=== PATIENT | female | born 1965 | race Caucasian/White ===

== ENCOUNTER → 2018-01-11 09:53 | Outpatient (CLI) | payer OTHER, SELFPAY ==
--- NOTE | 2018-01-11 15:26 | PFTCOMP ---
COMPLETE PULMONARY FUNCTION TEST INTERPRETATION Brief HPI: Patient is a 52 year old female, currently under the care of myself, who presents to [facility] for complete pulmonary function tests secondary to diagnosis of cough. Respiratory therapist reports good effort and reproducible results. Interpretation: Forced expiration spirometry shows a severe large airways obstructive ventilatory defect with an FEV1 of 53% predicted. There is no significant bronchodilator response by strict ATS criteria. Spirograms are of good quality and plateau slowly, indicating slowly emptying areas of the lungs. The respiratory flow volume loop shows decreased expiratory flow rates at all lung volumes consistent with airway obstruction. Lung volumes by body plethysmography show a normal total lung capacity at 5.71 L, 96% predicted. FRC and RV are elevated out of proportion. Lung volume measurements are consistent with air-trapping. Diffusion capacity by carbon monoxide is decreased at 50% predicted. The airway resistance is elevated. Compared to previous pulmonary function tests from 05/03/2017, there has been a significant improvement in FVC, FEV1 and TLC. Impression: Irreversible severe large airways obstructive ventilatory defect with a symmetric reduction diffusing capacity. There is significant improvement compared to previous study.
--- NOTE | 2018-01-11 15:29 | PFTCOMP_ITS ---
COMPLETE PULMONARY FUNCTION TEST INTERPRETATION Brief HPI: Patient is a 52 year old female, currently under the care of myself, who presents to [facility] for complete pulmonary function tests secondary to diagnosis of cough. Respiratory therapist reports good effort and reproducible results. Interpretation: Forced expiration spirometry shows a severe large airways obstructive ventilatory defect with an FEV1 of 53% predicted. There is no significant bronchodilator response by strict ATS criteria. Spirograms are of good quality and plateau slowly, indicating slowly emptying areas of the lungs. The respiratory flow volume loop shows decreased expiratory flow rates at all lung volumes consistent with airway obstruction. Lung volumes by body plethysmography show a normal total lung capacity at 5.71 L , 96% predicted. FRC and RV are elevated out of proportion. Lung volume measurements are consistent with air-trapping. Diffusion capacity by carbon monoxide is decreased at 50% predicted. The airway resistance is elevated. Compared to previous pulmonary function tests from 05/03/2017, there has been a significant improvement in FVC, FEV1 and TLC. Impression: Irreversible severe large airways obstructive ventilatory defect with a symmetric reduction diffusing capacity. There is significant improvement compared to previous study.
== END ==
LOC: PSN 09:55
PROVIDERS: Family Provider Family Medicine; PCP Family Medicine; Visit Provider Internal Medicine Critical Care Medicine
DX: R05 Cough (principal)
CPT/HCPCS: 94060; 94726; 94729

== ENCOUNTER → 2018-11-15 12:44 | Outpatient (CLI) | payer BC, SELFPAY ==
[2018-08-18 11:09] VITALS: BMI 41.6
--- NOTE | 2018-11-15 16:53 | PFTCOMP_ITS ---
COMPLETE PULMONARY FUNCTION TEST INTERPRETATION Brief HPI: Patient is a 53 year old [female male], currently under the care of [myself Dr. Arredondo], who presents to [facility] for complete pulmonary function tests secondary to diagnosis of [dyspnea COPD]. Respiratory therapist reports good effort and reproducible results. Interpretation: Forced expiration spirometry shows a [moderately-severe] large airways obstructive ventilatory defect with an FEV1 of 63% predicted. There is a significant bronchodilator response in FEV1 by strict ATS criteria. Spirograms are of good quality and plateau [slowly, indicating slowly emptying areas of the lungs]. The respiratory flow volume loop shows [decreased expiratory flow rates at all lung volumes consistent with airway obstruction]. Lung volumes by body plethysmography show [a normal an elevated, a decreased] total lung capacity at 5.14 L, 87% predicted. [All other lung volumes are within normal limits.] Diffusion capacity by carbon monoxide is decreased at 65% predicted. The airway resistance is elevated. [Compared to previous pulmonary function tests from] 01/11/2018, there is been a significant improvement in FVC, FEV1 and DLCO by 23%, 17% and 31% respectively. Impression: Partially reversible moderately severe large airways obstructive ventilatory defect with a symmetric reduction diffusion capacity, in a pattern consistent with COPD/asthma overlap syndrome.
== END ==
LOC: PSN 12:45
PROVIDERS: Family Provider Family Medicine; PCP Family Medicine; Referring Provider Internal Medicine Critical Care Medicine; Visit Provider Internal Medicine Critical Care Medicine
DX: J30.9 Allergic rhinitis, unspecified (principal); R06.02 Shortness of breath
CPT/HCPCS: 94060; 94726; 94729

== ENCOUNTER → 2018-11-21 | Outpatient (CLI) | payer BC, SELFPAY ==
[2018-11-21 12:57] VITALS: BMI 41.3
[2018-11-21 15:32] LABS: T4 Total, Thyroxin 11.7 ug/dL (4.8-13.9); Thyroid Stim Hormone (TSH) 0.37 uIU/mL (0.358-3.74)
== END | disposition home or self-care (01) ==
LOC: LAB 13:34
PROVIDERS: Family Provider Family Medicine; PCP Family Medicine; Referring Provider Internal Medicine Cardiovascular Disease; Visit Provider Internal Medicine Cardiovascular Disease
DX: L65.9 Nonscarring hair loss, unspecified (principal); R00.0 Tachycardia, unspecified; R00.2 Palpitations
CPT/HCPCS: 36415; 84436; 84443

== ENCOUNTER → 2018-11-23 12:52 | Outpatient (REF) | payer BC, SELFPAY ==
[2018-11-21 12:57] VITALS: BMI 41.3
[2018-11-22 13:07] VITALS: BMI 41.3
== END ==
LOC: CVS 12:52
PROVIDERS: Family Provider Family Medicine; PCP Family Medicine; Referring Provider Internal Medicine Cardiovascular Disease; Visit Provider Internal Medicine Cardiovascular Disease
DX: R00.2 Palpitations (principal); R00.0 Tachycardia, unspecified; I42.9 Cardiomyopathy, unspecified
CPT/HCPCS: 93270

== ENCOUNTER → 2018-12-20 | Outpatient (CLI) | payer OTHER, SELFPAY ==
[2018-11-21 12:57] VITALS: BMI 41.3
[2018-11-22 13:07] VITALS: BMI 41.3
--- NOTE | 2018-12-20 12:48 | ECHOCS_ITS ---
Reason For Study: ARRHYTHMIA Procedure This was a 2D Doppler, Color Flow transthoracic echocardiogram. Exam performed in department. Left Ventricle Mildly dilated left ventricle. The estimated ejection fraction is 45-50 %. Stage 1 diastolic dysfunction. There is mild global hypokinesis of the left ventricle. Right Ventricle Normal size and thickness. Normal systolic function. Atria Normal left atrium. Normal right atrium. Normal atrial septum. Mitral Valve The mitral valve is structurally normal. No prolapse or stenosis seen. Tricuspid Valve Normal tricuspid valve. Trivial tricuspid valve insufficiency. Right ventricular systolic pressure estimated to be 35 mmHg. Aortic Valve Trisinus/trileaflet aortic valve. Normal aortic valve. Pulmonic Valve Normal pulmonic valve. Trivial pulmonic valve insufficiency. Great Vessels Normal aortic root. Normal arch. Normal inferior vena cava. Inferior vena cava collapse with sniff. Pericardium/Pleural No pericardial effusion. Medication 22 gauge I.V. with prn adaptor inserted into right arm. Diluted definity 3ml given slow IV push to enhance endocardial definition. MMode/2D Measurements & Calculations LVIDd: 5.4 cm IVSd: 0.90 cm Ao root diam: 3.4 cm LVIDs: 4.1 cm LVPWd: 0.96 cm RVDd: 3.6 cm FS: 24.1 % LAV(MOD-bp): 64.3 ml EDV(MOD-sp4): 153.9 ml EDV(MOD-sp2): 157.2 ml LAV(MOD-bp) Indexed: 27.1 ml/m2 ESV(MOD-sp4): 78.6 ml EF(MOD-sp2): 54.3 % LAV(MOD-sp2): 64.3 ml EF(MOD-sp4): 49.0 % LAV(MOD-sp4): 59.7 ml SV(MOD-sp4): 75.3 ml SV(MOD-sp2): 85.3 ml LA A4 area: 20.3 cm2 LA dimension(2D): 3.5 cm RA A4 area: 12.6 cm2 Time Measurements MV dec time: 0.35 sec Doppler Measurements & Calculations MV E max lc: 48.3 cm/sec Lat Peak E' Lc: 8.6 cm/sec Med Peak E' Lc: 7.7 cm/sec MV A max lc: 73.5 cm/sec E/E' lat: 5.6 E/E' med: 6.3 MV E/A: 0.66 Ao V2 max: 158.9 cm/sec LV V1 max: 125.5 cm/sec PA V2 max: 106.7 cm/sec Ao max P.1 mmHg LV V1 max P.3 mmHg TR max lc: 268.6 cm/sec TR max P.9 mmHg Interpretation Summary Mildly dilated left ventricle. The estimated ejection fraction is 45-50 %. Stage 1 diastolic dysfunction. There is mild global hypokinesis of the left ventricle. Trivial tricuspid valve insufficiency. Right ventricular systolic pressure estimated to be 35 mmHg. Compared to echo report dated 04/26/2017, no appreiciable changes noted. The study was technically difficult. Contrast injection was performed. Ordering Physician: Samy Munoz Referring Physician: ANNEMARIE HAMILTON Performed By: Rosa Matthews, ROSETTE, RVT
== END | disposition home or self-care (01) ==
LOC: CVS 12:47
PROVIDERS: Family Provider Family Medicine; PCP Family Medicine; Referring Provider Internal Medicine Cardiovascular Disease; Visit Provider Internal Medicine Cardiovascular Disease
DX: G47.19 Other hypersomnia (principal); R06.83 Snoring; I42.9 Cardiomyopathy, unspecified; R00.2 Palpitations
CPT/HCPCS: 93306; 95810; Q9957; A4216; C8929

== ENCOUNTER → 2018-12-20 | Outpatient (CLI) | payer OTHER, SELFPAY ==
[2018-11-22 13:07] VITALS: BMI 41.3
[2018-12-20 14:58] LABS: Absolute Lymphocyte Count 1.75 X10^3/ul (0.83-4.51); Absolute Neutrophil Count 5.4 X10^3/uL (2.0-7.7); Basophil# 0.03 X10^3/uL; Basophil% 0.4 % (0-1); Eosinophils% 2.6 % (0-5); Hematocrit 43.2 % (37-47); Hemoglobin 13.8 g/dl (12.0-15.0); Lymphocyte # 1.75 X10^3/ul (4.0); Lymphocyte % 22.4 % (19-41); Mean Corp Hgb Conc 31.9 g/gl (32-36); Mean Corpuscular Hgb 28.2 pg (27.0-32.0); Mean Corpuscular Volume 88.3 fL (81-99); Mean Platelet Vol. 9.9 fl (6.2-12.0); Monocyte% 5.1 % (0-10); Neutrophil # 5.43 X10^3/uL (2.7-7.7); Neutrophil % 69.4 % (47-70); POSITIVE COUNT NO; POSITIVE DIFFERENTIAL NO; POSITIVE MORPHOLOGY NO; Platelet Count 362 K/mm3 (150-450); RBC Distribution Width SD 44.6 fl (35.1-43.9); Red Blood Count 4.89 M/mm3 (4.2-5.4); White Blood Count 7.8 K/mm3 (4.4-11.0)
[2018-12-20 15:27] LABS: Anion Gap 10 (5-15); BUN 12 mg/dL (7-18); BUN/Creat Ratio 16.4 RATIO (10-20); Calcium,Total 9.1 mg/dL (8.5-10.1); Chloride 105 mmol/L (98-107); Creatinine, Serum 0.73 mg/dL (0.55-1.02); EST Glomerular Filtration Rate 87 mL/min (>60); Est Glom Filt Rate - Afr Amer 106 mL/min (>60); Glucose 85 mg/dL (74-106); Magnesium 2.1 mg/dL (1.6-2.6); Potassium 3.9 mmol/L (3.5-5.1); Sodium Level 141 mmol/L (136-145)
== END | disposition home or self-care (01) ==
LOC: LAB 13:58
PROVIDERS: Family Provider Family Medicine; PCP Family Medicine; Referring Provider Physician Assistant Medical; Visit Provider Physician Assistant Medical
DX: I47.2 Ventricular tachycardia (principal)
CPT/HCPCS: 36415; 80048; 83735; 85025

== ENCOUNTER → 2019-01-12 | Outpatient (CLI) | payer BC, SELFPAY ==
[2018-11-22 13:07] VITALS: BMI 41.3
[2019-01-10 10:48] VITALS: BMI 41.3
== END | disposition home or self-care (01) ==
LOC: SL 20:19
PROVIDERS: Family Provider Family Medicine; PCP Family Medicine; Visit Provider Nurse Practitioner Acute Care
DX: G47.33 Obstructive sleep apnea (adult) (pediatric) (principal)
CPT/HCPCS: 95811

== ENCOUNTER → 2019-01-31 | Outpatient (CLI) | payer BC, SELFPAY ==
[2019-01-10 10:48] VITALS: BMI 41.3
[2019-01-27 14:52] VITALS: BMI 40.1
== END | disposition home or self-care (01) ==
LOC: SL 13:38
PROVIDERS: Family Provider Family Medicine; PCP Family Medicine; Referring Provider Nurse Practitioner Acute Care; Visit Provider Nurse Practitioner Acute Care
DX: G47.33 Obstructive sleep apnea (adult) (pediatric) (principal)

== ENCOUNTER 2019-06-29 00:18 | Emergency (ER) | payer SELFPAY ==
[2019-02-14 11:14] VITALS: BMI 39.5
[2019-06-29 00:18] VITALS: BP 189/107; PULSE 85; RESP 30; TEMP 36.9; O2SAT 95; BMI 34.4
--- NOTE | 2019-06-29 00:22 | RAD_ITS ---
STUDY: X-RAY CHEST REASON FOR EXAM: Female, 54 years old. sob -- hx of asthma TECHNIQUE: Single AP portable view of the chest. COMPARISON: None. FINDINGS: The lungs are clear and expanded. There is no demonstrated pleural abnormality. Normal size heart. Normal mediastinum and abundio. Normal visualized pulmonary arteries. Normal visualized aortic arch and descending thoracic aorta. Normal visualized thoracic spine. Normal visualized ribs, clavicles, and shoulders. There is no demonstrated abnormality of the visualized soft tissue structures of the upper abdomen. RAD/Chest 1 View (Portable) IMPRESSION: Normal x-ray examination of the chest. Electronically Signed: Polo Lees, at 1:00 EST Tel , Service support ,
--- NOTE | 2019-06-29 00:22 | EKG12_ITS ---
Test Reason : CP Blood Pressure : / mmHG Vent. Rate : 083 BPM Atrial Rate : 083 BPM P-R Int : 152 ms QRS Dur : 080 ms QT Int : 366 ms P-R-T Axes : 048 071 023 degrees QTc Int : 430 ms Normal sinus rhythm Normal ECG Confirmed by WANG GLEASON, SERGIO ([id number]), scientific editor CAROLINA GOMEZ ([id number] on 06/30/2019 10:33:02 AM Referred By: GLEN Confirmed By:RASHEED PIÑA MD
--- NOTE | 2019-06-29 00:24 | ED.VIS.GEN ---
History of Present Illness Chief Complaint: Shortness of Breath Informant: Patient Onset: Days Context: Gradual Onset Timing: Continuous Current Severity: Moderate Maximum Severity: Moderate Narrative: The patient is a 54-year-old female with history of COPD who is not on home oxygen that presents to the emergency department with increasing dyspnea and wheezing. The patient states there was recent change in her insurance. She was without her COPD medications for about 5 days. She states that she recently got them refilled, but is still been having increasing shortness of breath and wheezing. She said cough with scant sputum. She denies any fevers or chills. She denies any chest pain. She states tonight, she just felt like she could not catch her breath. Prior similar symptoms: Yes Recent Illness/Hospitalization: No Past Medical History - Allergies and Home Meds Allergies/Adverse Reactions: Allergies azithromycin [From Zithromax] Allergy (Verified 06/29/19 00:21) Swelling doxycycline [From Acticlate] Allergy (Verified 06/29/19 00:21) Unknown erythromycin base Allergy (Verified 06/29/19 00:21) Unknown penicillin G [From Bicillin C-R] Allergy (Verified 06/29/19 00:21) Unknown penicillin G procaine [From Bicillin C-R] Allergy (Verified 06/29/19 00:21) Unknown Penicillins Allergy (Verified 06/29/19 00:21) Unknown Primary Care Physician: Kevin Rodriguez MD [Primary Care Provider] - Prior records reviewed: Yes Past Medical History: - - COPD Surgical History: noncontributory Smoking Status: Never smoker Review of Systems General: Denies: Chills, Fever, Sweats Eyes: Denies: Visual changes - bilaterally, Diplopia ENT: Denies: Rhinorrhea, Sore throat Cardiovascular: Denies: Chest pain, Palpitations Respiratory: Reports: Dyspnea, Cough, Sputum. Denies: Dyspnea on exertion Gastrointestinal: Denies: Abdominal pain, Nausea, Vomiting, Diarrhea, Melena, Hematochezia Genitourinary: Denies: Dysuria, Hematuria, Frequency Musculoskeletal: Denies: Back pain, Extremity Pain Skin: Denies: Rash, Wounds Neurological: Denies: Headache, Weakness, Numbness Physical Exam Vital Signs/Narrative: Vital Signs Temp Pulse Resp BP Pulse Ox 06/29/19 00:18 98.4 F 85 30 H 189/107 H 95 Inital Vital Signs reviewed: Yes General: Well nourished, Well developed, No Acute Distress Head: Normocephalic, Atraumatic Eyes: Perrl, EOMI ENT: Moist mucous membranes, No rhinorrhea Neck: Supple, Nontender Cardiovascular: Regular rate, Regular rhythm, No murmurs Respiratory: No distress, Chest nontender, Wheezing Abdomen: Soft, Nontender, Nondistended, Normal bowel sounds Back: Nontender, Normal Inspection Extremities: Nontender, No edema Skin: Normal color, No rash Neurological: Alert, Oriented x3, Cranial nerves II-XII grossly intact, Normal Strength, Normal Sensation Psychological: Normal affect, Normal Mood Diagnostic/Tx/Re-eval Chest X-Ray - ED: 1 View, Normal, Heart, Lungs, Mediastinum Clinical Impression(s) from Imaging Studies Chest X-Ray 06/29/19 00:22 IMPRESSION: Normal x-ray examination of the chest. Electronically Signed: Polo Lees, at 1:00 EST Tel , Service support , Abnormal Lab Results 06/29/19 06/29/19 00:40 00:40 WBC 10.0 RBC 4.97 Hgb 14.5 Hct 45.5 MCV 91.5 MCH 29.2 MCHC 31.9 L RDW Std Deviation 45.8 H RDW Coeff of Oziel 13.6 Plt Count 386 MPV 9.9 Immature Gran % (Auto) 0.200 Neut % (Auto) 53.8 Lymph % (Auto) 34.9 [place] % (Auto) 5.2 Eos % (Auto) 5.0 Baso % (Auto) 0.9 Absolute Neuts (auto) 5.4 Absolute Lymphs (auto) 3.48 Nucleated RBC % 0 Sodium 140 Potassium 4.3 Chloride 107 Carbon Dioxide 27.0 Anion Gap 6 BUN 19 H Creatinine 1.11 H Estim Creat Clear Calc 59.14 Est GFR (MDRD) Af Amer 65 Est GFR (MDRD) Non-Af 54 L BUN/Creatinine Ratio 17.1 Glucose 99 Calcium 9.3 - Rhythm Strip Rhythm Strip: Sinus Rhythm Rate: 80 Ectopy: None - EKG Initial EKG Interpretation: Sinus Rhythm, No Acute Injury Pattern Prior: Unchanged - Medical Decision Making The patient symptoms do seem most consistent with a COPD exacerbation. She was tachypneic on arrival. EKG was obtained which was sinus rhythm without acute ischemia. Screening labs are unremarkable. X-ray shows no evidence of volume overload, pneumothorax, or focal infiltrative process. With steroids and nebulized breathing treatments, the patient had rather dramatic symptomatic improvement. She is feeling much more comfortable. She has no tachypnea or hypoxia at baseline. At this point, she is requesting discharge and I feel this is reasonable. The patient be treated with a prednisone burst. 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 Impression 1 COPD exacerbation ED Disposition - Plan for ED Patient: Instructions: Copd Flare Prescriptions: Prednisone [Deltasone] 40 mg PO DAILY #10 tab Prescription Printed Referrals: Kevin Rodriguez MD [Primary Care Provider] -
[2019-06-29] MEDS: Ipratropium/Albuterol Sulfate 3 ML AMPUL.NEB INHALATION (00:39)
[2019-06-29 00:40] VITALS: PULSE 83; RESP 16
[2019-06-29 00:47] LABS: Absolute Lymphocyte Count 3.48 X10^3/uL (0.83-4.51); Absolute Neutrophil Count 5.4 X10^3/uL (2.0-7.7); Basophil# 0.09 X10^3/uL; Basophil% 0.9 % (0-1); Hematocrit 45.5 % (37-47); Hemoglobin 14.5 g/dL (12.0-15.0); Lymphocyte # 3.48 X10^3/ul (4.0); Lymphocyte % 34.9 % (19-41); Mean Corp Hgb Conc 31.9 g/dL (32-36); Mean Corpuscular Hgb 29.2 pg (27.0-32.0); Mean Corpuscular Volume 91.5 fL (81-99); Mean Platelet Vol. 9.9 fl (6.2-12.0); Monocyte# 0.52 X10^3/uL; Monocyte% 5.2 % (0-10); NRBC Flagged by Analyzer 0 % (0-5); Neutrophil # 5.37 X10^3/uL (2.7-7.7); Neutrophil % 53.8 % (47-70); Platelet Count 386 K/mm3 (150-450); RBC Distribution Width CV 13.6 % (11.6-14.6); RBC Distribution Width SD 45.8 fl (35.1-43.9); Red Blood Count 4.97 M/mm3 (4.2-5.4)
[2019-06-29] MEDS: Albuterol 2.5 MG/3 ML VIAL.NEB. INHALATION ×3 (00:47→00:53)
[2019-06-29 01:04] LABS: Anion Gap 6 (5-15); BUN 19 mg/dL (7-18); BUN/Creat Ratio 17.1 RATIO (10-20); Calcium,Total 9.3 mg/dL (8.5-10.1); Chloride 107 mmol/L (98-107); Creatinine, Serum 1.11 mg/dL (0.55-1.02); EST Glomerular Filtration Rate 54 mL/min (>60); Est Glom Filt Rate - Afr Amer 65 mL/min (>60); Estimated Creatinine Clearance 59.14 ml/min; Glucose 99 mg/dL (74-106); Potassium 4.3 mmol/L (3.5-5.1); Sodium Level 140 mmol/L (136-145)
[2019-06-29] MEDS: MethylPREDNISolone 125 MG/2 ML Vial IV (01:07)
[2019-06-29] MEDS: 0.9% Normal Saline 1,000 ML 150 ML IV (01:07)
[2019-06-29 01:27] VITALS: BP 162/70; PULSE 80; RESP 20; O2SAT 94
== END 2019-06-29 01:36 | disposition home or self-care (01) ==
LOC: ED 00:50
PROVIDERS: Emergency Provider Emergency Medicine; Family Provider Family Medicine; PCP Family Medicine
DX: J44.1 Chronic obstructive pulmonary disease with (acute) exacerbation (principal)
CPT/HCPCS: 71045; 80048; 85025; 93005; 94640; 96361; 96374; 99285; J7030; A4216

== ENCOUNTER → 2020-01-01 14:56 | Outpatient (CLI) | payer OTHER, SELFPAY ==
[2019-11-24 11:02] VITALS: BMI 39.5
[2020-01-01 16:08] LABS: Absolute Lymphocyte Count 2.08 X10^3/uL (0.83-4.51); Absolute Neutrophil Count 6.2 X10^3/uL (2.0-7.7); Basophil# 0.06 X10^3/uL; Basophil% 0.7 % (0-1); Eosinophil# 0.27 X10^3/uL; Hematocrit 40.4 % (37-47); Hemoglobin 12.6 g/dL (12.0-15.0); Lymphocyte # 2.08 X10^3/ul (4.0); Mean Corp Hgb Conc 31.2 g/dL (32-36); Mean Corpuscular Hgb 28.8 pg (27.0-32.0); Mean Corpuscular Volume 92.2 fL (81-99); Mean Platelet Vol. 9.5 fl (6.2-12.0); Monocyte# 0.44 X10^3/uL; Monocyte% 4.9 % (0-10); NRBC Flagged by Analyzer 0 % (0-5); Neutrophil # 6.18 X10^3/uL (2.7-7.7); Neutrophil % 68.3 % (47-70); Platelet Count 378 K/mm3 (150-450); RBC Distribution Width CV 13.9 % (11.6-14.6); Red Blood Count 4.38 M/mm3 (4.2-5.4)
[2020-01-06 16:07] LABS: Alternaria alternata <0.10 kU/L (Class 0); Bermuda Grass <0.10 kU/L (Class 0); Bluegrass, Kentucky <0.10 kU/L (Class 0); Cat Hair/Dander, Standard <0.10 kU/L (Class 0); D farinae Mite <0.10 kU/L (Class 0); D pteronyssinus <0.10 kU/L (Class 0); Dog Epithelia <0.10 kU/L (Class 0); Elm, American White <0.10 kU/L (Class 0); Oak, White <0.10 kU/L (Class 0); Plantain, English <0.10 kU/L (Class 0); Ragweed, Short/Common <0.10 kU/L (Class 0)
[2020-01-06 17:58] LABS: Mouse Urine <0.10 kU/L (Class 0)
[2020-01-07 09:36] LABS: Aspirgillus flavus Negative (Neg:<1:1); Aspirgillus fumigatus Negative (Neg:<1:1); Aspirgillus niger Negative (Neg:<1:1); Cytoplasmic Ab (C-ANCA) <1:20 titer (Neg:<1:20)
[2020-01-07 23:46] LABS: Immunoglobulin E 32 IU/mL (6-495); Perinuclear Ab (P-ANCA) <1:20 titer (Neg:<1:20)
== END ==
PROVIDERS: PCP Family Medicine; Referring Provider Internal Medicine Critical Care Medicine; Visit Provider Internal Medicine Critical Care Medicine
DX: J30.9 Allergic rhinitis, unspecified (principal)
CPT/HCPCS: 36415; 82785; 85025; 86003; 86256; 86606

== ENCOUNTER → 2020-02-09 10:46 | Outpatient (CLI) | payer OTHER, SELFPAY ==
[2019-11-24 11:02] VITALS: BMI 39.5
[2020-02-09 11:21] LABS: Absolute Lymphocyte Count 2.08 X10^3/uL (0.83-4.51); Absolute Neutrophil Count 5.6 X10^3/uL (2.0-7.7); Basophil# 0.07 X10^3/uL; Basophil% 0.8 % (0-1); Eosinophil# 0.25 X10^3/uL; Eosinophils% 2.9 % (0-5); Hematocrit 42.4 % (37-47); Hemoglobin 13.2 g/dL (12.0-15.0); Lymphocyte # 2.08 X10^3/ul (4.0); Lymphocyte % 24.5 % (19-41); Mean Corp Hgb Conc 31.1 g/dL (32-36); Mean Corpuscular Hgb 28.4 pg (27.0-32.0); Mean Corpuscular Volume 91.2 fL (81-99); Monocyte# 0.45 X10^3/uL; Monocyte% 5.3 % (0-10); NRBC Flagged by Analyzer 0 % (0-5); Neutrophil # 5.61 X10^3/uL (2.7-7.7); Neutrophil % 66.3 % (47-70); Platelet Count 390 K/mm3 (150-450); RBC Distribution Width CV 13.7 % (11.6-14.6); RBC Distribution Width SD 46.1 fl (35.1-43.9); Red Blood Count 4.65 M/mm3 (4.2-5.4); White Blood Count 8.5 K/mm3 (4.4-11.0)
[2020-02-12 20:07] LABS: Alternaria alternata <0.10 kU/L (Class 0); Bermuda Grass <0.10 kU/L (Class 0); Bluegrass, Kentucky <0.10 kU/L (Class 0); Cat Hair/Dander, Standard <0.10 kU/L (Class 0); D farinae Mite <0.10 kU/L (Class 0); D pteronyssinus <0.10 kU/L (Class 0); Dog Epithelia <0.10 kU/L (Class 0); Elm, American White <0.10 kU/L (Class 0); Oak, White <0.10 kU/L (Class 0); Plantain, English <0.10 kU/L (Class 0); Ragweed, Short/Common <0.10 kU/L (Class 0)
[2020-02-12 22:06] LABS: Mouse Urine <0.10 kU/L (Class 0)
[2020-02-14 03:06] LABS: Aspirgillus flavus Negative (Neg:<1:1); Aspirgillus fumigatus Negative (Neg:<1:1); Aspirgillus niger Negative (Neg:<1:1)
[2020-02-14 03:17] LABS: Immunoglobulin E 22 IU/mL (6-495)
== END ==
PROVIDERS: PCP Family Medicine; Referring Provider Nurse Practitioner Acute Care; Visit Provider Nurse Practitioner Acute Care
DX: J45.909 Unspecified asthma, uncomplicated (principal)
CPT/HCPCS: 36415; 82785; 85025; 86003; 86606; 87070; 87205

== ENCOUNTER → 2020-04-29 12:56 | Outpatient (CLI) | payer OTHER, SELFPAY ==
[2019-11-24 11:02] VITALS: BMI 39.5
[2020-04-29 13:39] LABS: Absolute Lymphocyte Count 1.59 X10^3/uL (0.83-4.51); Absolute Neutrophil Count 5.4 X10^3/uL (2.0-7.7); Basophil# 0.06 X10^3/uL; Basophil% 0.8 % (0-1); Eosinophil# 0.23 X10^3/uL; Hematocrit 40.8 % (37-47); Hemoglobin 12.7 g/dL (12.0-15.0); Lymphocyte # 1.59 X10^3/ul (4.0); Lymphocyte % 20.6 % (19-41); Mean Corp Hgb Conc 31.1 g/dL (32-36); Mean Corpuscular Hgb 28.9 pg (27.0-32.0); Mean Corpuscular Volume 92.7 fL (81-99); Mean Platelet Vol. 9.5 fl (6.2-12.0); Monocyte# 0.47 X10^3/uL; Monocyte% 6.1 % (0-10); NRBC Flagged by Analyzer 0 % (0-5); Neutrophil # 5.36 X10^3/uL (2.7-7.7); Neutrophil % 69.2 % (47-70); Platelet Count 376 K/mm3 (150-450); RBC Distribution Width CV 13.4 % (11.6-14.6); RBC Distribution Width SD 45.9 fl (35.1-43.9); White Blood Count 7.7 K/mm3 (4.4-11.0)
[2020-05-02 03:07] LABS: Alternaria alternata <0.10 kU/L (Class 0); Bermuda Grass <0.10 kU/L (Class 0); Bluegrass, Kentucky <0.10 kU/L (Class 0); Cat Hair/Dander, Standard <0.10 kU/L (Class 0); D farinae Mite <0.10 kU/L (Class 0); D pteronyssinus <0.10 kU/L (Class 0); Dog Epithelia <0.10 kU/L (Class 0); Elm, American White <0.10 kU/L (Class 0); Mouse Urine <0.10 kU/L (Class 0); Oak, White <0.10 kU/L (Class 0); Plantain, English <0.10 kU/L (Class 0); Ragweed, Short/Common <0.10 kU/L (Class 0)
[2020-05-02 04:13] LABS: ANTINUCLEAR ANTIBODIES DIRECT Negative (Negative)
[2020-05-03 03:06] LABS: Aspirgillus flavus Negative (Neg:<1:1); Aspirgillus fumigatus Negative (Neg:<1:1); Aspirgillus niger Negative (Neg:<1:1)
[2020-05-03 06:33] LABS: Immunoglobulin E 23 IU/mL (6-495)
== END ==
LOC: MTLAB 12:58 → LAB 13:03
PROVIDERS: Referring Provider Nurse Practitioner Acute Care; Visit Provider Nurse Practitioner Acute Care
DX: J45.909 Unspecified asthma, uncomplicated (principal)
CPT/HCPCS: 36415; 82785; 85025; 86003; 86038; 86225; 86235; 86606